=== PATIENT | female | born 1940 | race Caucasian/White ===

== ENCOUNTER → 2017-05-23 | Outpatient (CLI) | payer OTHER ==
[~2017-05-23] VITALS: Ht 160 cm; Wt 79.7 kg
[~2017-05-23] MED LIST: ASPI81TA23 PO; ATOR20TA15 PO; CARV3.12 PO; CENTCHW3 PO; CHLORHEXIDINE GLUCONATE 2 % 1 PACK (2 CLOTHS) TOPICAL PRN; CITA20TA4 PO; CITRTAB7 PO; DEXTROSE 5% IN WATE 1000ML INJ 1,000 ML IV SCH; GLUC100013 PO; LACTATED RINGER'S 1000 ML IV PRN; LEVO100T5 PO; LIDOCAINE HCL 1% PF 5 ML SYRINGE OTHER ONE; LORA1TAB12 PO; MELA5 PO; METOPROLOL TARTRATE 25 MG TAB PO PRN; PHENYLEPH/NS 1000 MCG/10 ML SYR IV ONE; POVIDONE IODINE 5% (ANTISEPSIS KIT) 4 APPLICATIONS EACH NARE PRN; PROPOFOL 200 MG/20 ML AMP IV ONE; SODIUM CHLORID 0.9% 500 ML IV PRN; VENTAER INH; VITA10004 PO
[2017-05-23 13:49] VITALS: BP 147/75; PULSE 80; RESP 18; TEMP 97.6; O2SAT 95
--- NOTE | 2017-05-23 14:25 | GIPROC ---
[facility] [address] [facility]. [facility], [address] COLONOSCOPY PROCEDURE REPORT EXAM DATE: 05/23/2017 PATIENT NAME: Dhara Lopez MR #: [id number] BIRTHDATE: 1940 ENDOSCOPIST: Amanda Arredondo MD ORDER #: [id number] DRIVE IN WAITER/WAITRESS: Joaquin Granados and Lucinda Gallo STATUS: outpatient INDICATIONS: The patient is a 76 yr old female here for a colonoscopy due to Screening, Personal history of polyps PROCEDURE PERFORMED: Total Colonoscopy with biopsy MEDICATIONS: See Anesthesia Record ESTIMATED BLOOD LOSS: None CONSENT: The patient understands the risks and benefits of the procedure and understands that these risks include, but are not limited to: sedation, allergic reaction, infection, perforation and/or bleeding. Alternative means of evaluation and treatment include, among others: physical exam, x-rays, and/or surgical intervention. The patient elects to proceed with this endoscopic procedure. DESCRIPTION OF PROCEDURE: checked for proper function. Hand hygiene and appropriate measures for infection prevention was taken. After the risks, benefits and alternatives of the procedure were thoroughly explained, Informed consent was verified, confirmed and timeout was successfully executed by the treatment team. A digital exam was performed. The endoscope was introduced through the anus and advanced to the cecum, which was identified by the appendiceal orifice, tri-radiate valve, and ileocecal valve. The prep quality was good. The instrument was then slowly withdrawn as the colon was fully examined. In the cecum, there was a benign appearing multilobulated sessile polyp. Photos and biopsies were taken. There were no further mucosal abnormalities noted with the ascending colon, transverse colon, or descending colon.. In the sigmoid colon, the patient had extensive diverticulosis with some angulation. There were no abnormalities in the rectum. The scope was then completely withdrawn from the patient and the procedure terminated. ADVERSE EVENTS: There were no complications. WITHDRAWL TIME: DEGREE OF DIFFICULTY: IMPRESSIONS: Normal Colon RECOMMENDATIONS: Reconsider ascending colectomy. PATIENT CONDITION: Stable DISPOSITION: Home RECALL: Office visit in 2 weeks. Amanda Arredondo MD eSigned: Amanda Arredondo MD 05/23/2017 2:24 PM cc: Dr. Kligore PATIENT NAME: Dhara Lopez MR#: [id number]
--- NOTE | 2017-05-24 18:39 | EKG ---
Date Performed: 05/23/2017 Time Performed: 11:41:34 PTAGE: 76 years EKG: ELECTRONIC ATRIAL PACEMAKER NONSPECIFIC T-WAVE ABNORMALITY ABNORMAL RHYTHM ECG PREVIOUS TRACING : 07/18/2002 11.[address] abnormality are new from the old keiry ng. DOCTOR: Bon Hou Interpretating Date/Time 05/24/2017 18:38:37
== END ==
LOC: HEND 10:42
PROVIDERS: ATTEND Colon & Rectal Surgery
DX: Z12.11 Encounter for screening for malignant neoplasm of colon (principal); Z86.010 Personal history of colon polyps; D12.0 Benign neoplasm of cecum; D12.5 Benign neoplasm of sigmoid colon; K57.30 Diverticulosis of large intestine without perforation or abscess without bleeding; Z95.0 Presence of cardiac pacemaker; Z79.82 Long term (current) use of aspirin
CPT/HCPCS: 00810; 45380; 88305; 93005; J2370; J7120